=== PATIENT | female | born 1985 | race Caucasian/White ===

== ENCOUNTER 2023-01-24 09:09 | Day surgery (SDC) | payer OTHER ==
[~2023-01-24] VITALS: Ht 167.6 cm; Wt 89.4 kg
[~2023-01-24 09:09] MED LIST: AMIT50TA PO; DULO1CAP6 PO; NS 1,000 ML IV ONE
[2023-01-24] MEDS ORDERED: LIDOCAINE 2% 100MG/5ML SDV (FOR ANES.) As Ordered ONE (11:08)
[2023-01-24] MEDS ORDERED: propofoL 200 MG/20 ML VIAL As Ordered ONE ×2 (11:08→11:38)
[2023-01-24] MEDS ORDERED: fentaNYL 100 MCG/2 ML INJECTION As Ordered ONE (11:15)
[2023-01-24] MEDS ORDERED: propofoL 500 MG/50 ML VIAL As Ordered ONE (11:16)
[2023-01-24] MEDS ORDERED: MIDAZOLAM INJ 2MG/2ML VIAL As Ordered ONE (11:20)
[2023-01-24 11:44] VITALS: TEMP 97.7
[2023-01-24 12:14] VITALS: BP 142/70; O2SAT 99
== END 2023-01-24 12:25 | disposition home or self-care (01) ==
LOC: M OPP 09:09
PROVIDERS: ATTEND Internal Medicine Gastroenterology
DX: Z12.11 Encounter for screening for malignant neoplasm of colon (principal); Z86.010 Personal history of colon polyps; Z15.09 Genetic susceptibility to other malignant neoplasm; K63.89 Other specified diseases of intestine; K64.4 Residual hemorrhoidal skin tags; K64.8 Other hemorrhoids; K31.89 Other diseases of stomach and duodenum; K29.70 Gastritis, unspecified, without bleeding; K30 Functional dyspepsia; Z91.013 Allergy to seafood; Z88.8 Allergy status to other drugs, medicaments and biological substances
CPT/HCPCS: 43239; 45380; 88305; J2250; J3010